=== PATIENT | female | born 1960 | race African-American/Black ===

== ENCOUNTER 2016-04-14 17:58 | Emergency (ER) | payer OTHER ==
[~2016-04-14] VITALS: Ht 162.6 cm; Wt 88.3 kg
[2016-04-14 18:09] VITALS: BP 136/86; PULSE 80; RESP 20; TEMP 98.9; O2SAT 98
[2016-04-14] MEDS ORDERED: MULT-120 PO (18:22)
[2016-04-14] MEDS ORDERED: FERR1TAB36 PO (18:22)
[2016-04-14] MEDS ORDERED: MAGN400T2 PO (18:22)
[2016-04-14] MEDS ORDERED: CALCCHW9 CHEW (18:22)
--- NOTE | 2016-04-14 18:23 | PD ---
HPI . Suture removal Chief Complaint: Skin Problem Time Seen by Provider: 18:15 Travel History International Travel<30 days: Yes Contact w/Intl Traveler<30days: Yes Name of Country Traveled to: [place] Traveled to known affect area: No History of Present Illness HPI Patient presents requesting suture removal. She had bariatric surgery done in [place] on March 26. She states that she had the surgery done in [place] for financial reasons. She is unable to have a follow-up appointment with her primary care provider 3 weeks. She states that the sutures are going crazy. She denies any other complaints. [facility] Past Medical History Hypertension: Yes Past Surgical History Other Surgery: Yes (BARIATRIC SURGERY, SPINAL STENOSIS) Social History Alcohol Use: No Tobacco Use: No Substance Use: No Allergies-Medications (Allergen,Severity, Reaction): Coded Allergies: Lisinopril (Verified Allergy, Unknown, N/V COUGHING, 04/14/16) Reported Meds & Prescriptions Reported Meds & Active Scripts Active Reported Calcium 1200 (Calcium Carbonate-Vitamin D W/Minerals) 1,200-1,000 Mg-Unit Chew Unknown Dose CHEW DAILY Multivitamin Women (Multiple Vitamins W/ Minerals) 1 Tab Tab 1 Tab PO DAILY Iron (Ferrous Sulfate) 325 Mg Tab 325 Mg PO DAILY Take Magnesium Oxide 400 Mg Tab 400 Mg PO DAILY Review of Systems Except as stated in HPI: all other systems reviewed are Neg General / Constitutional: Positive: Weight Loss (approximately 15 pounds so far ), No: Fever, Chills Skin: Positive Itching, Positive Other (she denies any drainage or redness) Physical Exam Narrative GENERAL: Healthy-appearing woman in no acute distress. SKIN: Warm and dry. She has several sutures laparoscopic wounds on her abdomen. The wounds are well-healed with no drainage and is red. HEAD: Atraumatic. Normocephalic. EYES: Pupils equal and round. ENT: No nasal bleeding or discharge. NECK: Trachea midline. CARDIOVASCULAR: Regular rate and rhythm. RESPIRATORY: No accessory muscle use. GASTROINTESTINAL: Abdomen soft, non-tender, nondistended. MUSCULOSKELETAL: No obvious deformities. No edema. She has spinal stenosis and walks with a cane. NEUROLOGICAL: Awake and alert. No obvious cranial nerve deficits. Motor grossly within normal limits. Normal speech. PSYCHIATRIC: Appropriate mood and affect; insight and judgment normal. Data Data Last Documented VS Vital Signs Date Time Temp Pulse Resp B/P Pulse Ox O2 Delivery O2 Flow Rate FiO2 04/14/16 18:09 98.9 80 20 136/86 98 MDM Medical Decision Making Medical Screen Exam Complete: Yes Emergency Medical Condition: Yes Differential Diagnosis Differential diagnosis includes wound infection, cellulitis, healed lacerations. Narrative Course Patient presented requesting suture removal. The sutures have been removed. One of the wounds opened up a little bit. It does not appear infected. There is no purulent drainage. Diagnosis Primary Impression: Visit for suture removal Disposition: 01 DISCHARGE HOME Condition: Stable Evette Martinez MD Apr 14, 2016 18:23
[2016-04-14] MEDS ORDERED: NEOMYCIN/POLYMYXIN/BACITRACIN OINT 15 GM TUBE TOPICAL ONE (18:30)
== END 2016-04-14 18:40 | disposition home or self-care (01) ==
LOC: PHEFT 17:58
DX: Z48.02 Encounter for removal of sutures (principal); Z98.84 Bariatric surgery status
CPT/HCPCS: 99282

== ENCOUNTER 2017-02-06 19:10 | Emergency (ER) | payer OTHER ==
[~2017-02-06] VITALS: Ht 162.6 cm; Wt 66.0 kg
[~2017-02-06 19:10] MED LIST: CALCCHW9 CHEW; FERR1TAB36 PO; MAGN400T2 PO; MULT-120 PO
[2017-02-06 19:13] VITALS: BP 131/61; PULSE 66; RESP 16; TEMP 98.6; O2SAT 100
--- NOTE | 2017-02-06 21:33 | PD ---
HPI Chief Complaint: Dizziness Time Seen by Provider: 21:27 Travel History International Travel<30 days: No Contact w/Intl Traveler<30days: No Traveled to known affect area: No History of Present Illness HPI patient over last 2-3 weeks has had lightheadedness, blurry vision, thirsty all the time, urinating all the time, and now recently developed some prickly sensation to her left foot/sole. patient denies [place]/cp/abdpain/n/v/d/. [place]:pcp pmhx:htn, ddd, spinal stenosis, bariatric surgery PFSH Past Medical History Cardiovascular Problems: Yes (HTN) Gastrointestinal Disorders: Yes (bladder incontinence ) Hypertension: Yes Neurologic: Yes (degenerative disc) Psychiatric: Yes (PTSD) Tetanus Vaccination: < 5 Years Influenza Vaccination: Yes Menopausal: Yes Past Surgical History Other Surgery: Yes (BARIATRIC SURGERY, SPINAL STENOSIS) Social History Alcohol Use: No Tobacco Use: No Substance Use: No Allergies-Medications (Allergen,Severity, Reaction): Coded Allergies: lisinopril (Unverified Allergy, Unknown, N/V COUGHING, 11/25/16) Reported Meds & Prescriptions Reported Meds & Active Scripts Active Reported Amlodipine (Amlodipine Besylate) 5 Mg Tab 5 Mg PO DAILY Zolpidem (Zolpidem Tartrate) 5 Mg Tab 5 Mg PO HS PRN Prazosin (Prazosin HCl) 1 Mg Cap 1 Mg PO HS Ditropan (Oxybutynin Chloride) 5 Mg Tab 5 Mg PO Q8HR Losartan (Losartan Potassium) 100 Mg Tab 100 Mg PO DAILY Hydrochlorothiazide 25 Mg Tab 25 Mg PO DAILY Gabapentin 600 Mg Tab 600 Mg PO TID Duloxetine DR (Duloxetine HCl) 30 Mg Capdr 30 Mg PO TID Flexeril (Cyclobenzaprine HCl) 10 Mg Tab 10 Mg PO TID Calcium 600 with Vitamin D (Calcium Carbonate-Cholecalciferol) 600-400 mg-Unit Tab 1 Tab PO BID Review of Systems Except as stated in HPI: all other systems reviewed are Neg General / Constitutional: No: Fever Eyes: Positive: Blurred Vision HENT: Positive: Lightheadedness Cardiovascular: No: Chest Pain or Discomfort Respiratory: No: Shortness of Breath Gastrointestinal: No: Abdominal Pain Genitourinary: Positive: Frequency Musculoskeletal: No: Pain Skin: No Rash Neurologic: No: Weakness Psychiatric: No: Depression Endocrine: Positive: Polyuria, Polydipsia Hematologic/Lymphatic: No: Easy Bruising Physical Exam Narrative GENERAL: SKIN: Warm and dry. HEAD: Atraumatic. Normocephalic. EYES: Pupils equal and round. No scleral icterus. No injection or drainage. ENT: No nasal bleeding or discharge. Mucous membranes pink and moist. NECK: Trachea midline. No JVD. CARDIOVASCULAR: Regular rate and rhythm. RESPIRATORY: No accessory muscle use. Clear to auscultation. Breath sounds equal bilaterally. GASTROINTESTINAL: Abdomen soft, non-tender, nondistended. MUSCULOSKELETAL: Extremities without clubbing, cyanosis, or edema. No obvious deformities. NEUROLOGICAL: Awake and alert. No obvious cranial nerve deficits. Motor grossly within normal limits. Five out of 5 muscle strength in the arms and legs. Normal speech. PSYCHIATRIC: Appropriate mood and affect; insight and judgment normal. Data Data Last Documented VS Vital Signs Date Time Temp Pulse Resp B/P (MAP) Pulse Ox O2 Delivery O2 Flow Rate FiO2 02/07/17 00:51 02/06/17 21:57 60 16 02/06/17 21:47 100 Room Air 02/06/17 19:13 98.6 Orders Orders Electrocardiogram (02/06/17 21:27) Complete Blood Count With Diff (02/06/17 21:27) Comprehensive Metabolic Panel (02/06/17 21:27) Troponin I (02/06/17 21:27) Prothrombin Time / Inr (Pt) (02/06/17 21:27) Act Partial Throm Time (Ptt) (02/06/17 21:27) Lipase (02/06/17 21:27) Thyroid Stimulating Hormone (02/06/17 21:27) Ct Brain W/O Iv Contrast(Rout) (02/06/17 21:27) Iv Access Insert/Monitor (02/06/17 21:27) Ecg Monitoring (02/06/17 21:27) Oximetry (02/06/17 21:27) Orthostatic Vital Signs (02/06/17 21:27) Blood Glucose (02/06/17 21:27) Hemoglobin (Hgb) A1c (02/06/17 21:29) Ed Discharge Order (02/07/17 00:27) Labs Laboratory Tests Test 02/06/17 22:00 White Blood Count 4.1 TH/MM3 Red Blood Count 4.49 MIL/MM3 Hemoglobin 13.2 GM/DL Hematocrit 40.4 % Mean Corpuscular Volume 89.9 FL Mean Corpuscular Hemoglobin 29.4 PG Mean Corpuscular Hemoglobin Concent 32.7 % Red Cell Distribution Width 14.0 % Platelet Count 321 TH/MM3 Mean Platelet Volume 7.9 FL Neutrophils (%) (Auto) 40.3 % Lymphocytes (%) (Auto) 45.0 % Monocytes (%) (Auto) 8.4 % Eosinophils (%) (Auto) 6.0 % Basophils (%) (Auto) 0.3 % Neutrophils # (Auto) 1.7 TH/MM3 Lymphocytes # (Auto) 1.9 TH/MM3 Monocytes # (Auto) 0.3 TH/MM3 Eosinophils # (Auto) 0.2 TH/MM3 Basophils # (Auto) 0.0 TH/MM3 CBC Comment DIFF FINAL Differential Comment Prothrombin Time 11.1 SEC Prothromb Time International Ratio 1.0 RATIO Activated Partial Thromboplast Time 28.7 SEC Blood Urea Nitrogen 21 MG/DL Creatinine 0.86 MG/DL Random Glucose 78 MG/DL Total Protein 7.9 GM/DL Albumin 3.9 GM/DL Calcium Level 9.6 MG/DL Alkaline Phosphatase 86 U/L Aspartate Amino Transf (AST/SGOT) 13 U/L Alanine Aminotransferase (ALT/SGPT) 17 U/L Total Bilirubin 0.3 MG/DL Sodium Level 137 MEQ/L Potassium Level 3.7 MEQ/L Chloride Level 97 MEQ/L Carbon Dioxide Level 30.0 MEQ/L Anion Gap 10 MEQ/L Estimat Glomerular Filtration Rate 82 ML/MIN Hemoglobin A1c 6.1 % Troponin I LESS THAN 0.02 NG/ML Lipase 195 U/L Thyroid Stimulating Hormone 3rd Gen 0.598 uIU/ML MDM Medical Decision Making Medical Screen Exam Complete: Yes Emergency Medical Condition: Yes Medical Record Reviewed: Yes Interpretation(s) SINUS JOSHUA, 54, NL INTERVALS, NO STEMI Differential Diagnosis ANEMIA V NEW ONSET DM V DEHYDRATION V STEMI Narrative Course on today's visit no e/o aanemia, dehydration, stemi were found. also normal liver, pancreas, kidney function as well. the hemoglobin a1c was borderline and thus patient is advised [facility] based on her symptoms. Diagnosis Primary Impression: Dizziness Additional Instructions: [facility] FOLLOW [facility] WITH [facility] FOR [facility]URTHER EVALUATION (NORMAL RANDOM BLOOD SUGAR, NORMAL THYROID HORMONE, NORMAL HEMOGLOBIN, NORMAL ELECTROLYTES, NORMAL LIVER ENZYMES, NORMAL PANCREAS FUNCTIONS. Disposition: 01 DISCHARGE HOME Condition: Stable Claudio Griffin MD Feb 06, 2017 21:33
[2017-02-06 21:47] VITALS: BP 158/61; PULSE 55; RESP 16; O2SAT 100
[2017-02-06 21:49] VITALS: BP 151/75; RESP 16
--- NOTE | 2017-02-06 21:51 | RADRPT ---
EXAM DATE/TIME: 02/06/2017 21:29 [place] COMPARISON: No previous studies available for comparison. INDICATIONS : Patient complains of dizziness and headaches. RADIATION DOSE: 56.35 CTDIvol (mGy) MEDICAL HISTORY : Cardiovascular disease. Hypertension. SURGICAL HISTORY : None. ENCOUNTER: Initial ACUITY: 1 day PAIN SCALE: 4/10 LOCATION: cranial TECHNIQUE: Multiple contiguous axial images were obtained of the head. Using automated exposure control and adj ustment of the mA and/or kV according to patient size, radiation dose was kept as low as reasonably a chievable to obtain optimal diagnostic quality images. DICOM format image data is available electro nically for review and comparison. FINDINGS: CEREBRUM: The ventricles are normal for age. No evidence of midline shift, mass lesion, hemorrhage or acute in farction. No extra-axial fluid collections are seen. POSTERIOR FOSSA: The cerebellum and brainstem are intact. The 4th ventricle is midline. The cerebellopontine angle i s unremarkable. EXTRACRANIAL: The visualized portion of the orbits is intact. SKULL: The calvaria is intact. No evidence of skull fracture. CONCLUSION: Normal examination. Clem Redding MD on February 06, 2017 at 21:48 Board Certified Radiologist. This report was verified electronically.
[2017-02-06 21:57] VITALS: BP 175/77; RESP 16
[2017-02-06 22:36] LABS: AUTOMATED NEUTROPHIL # 1.7 TH/MM3 (1.8-7.7); BASOPHIL % 0.3 % (0.0-2.0); EOSINOPHIL # 0.2 TH/MM3 (0-0.4); HEMATOCRIT 40.4 % (35.0-46.0); HEMOGLOBIN 13.2 GM/DL (11.6-15.3); LYMPHOCYTE # 1.9 TH/MM3 (1.0-4.8); MEAN CELL VOLUME 89.9 FL (80.0-100.0); MEAN CORPUSCULAR HEMOGLOBIN 29.4 PG (27.0-34.0); MEAN CORPUSCULAR HGB CONC 32.7 % (32.0-36.0); MEAN PLATELET VOLUME 7.9 FL (7.0-11.0); MONO % 8.4 % (0.0-8.0); MONOCYTE # 0.3 TH/MM3 (0-0.9); NEUT % 40.3 % (16.0-70.0); PLATELET COUNT 321 TH/MM3 (150-450); RED BLOOD COUNT 4.49 MIL/MM3 (4.00-5.30); WHITE BLOOD COUNT 4.1 TH/MM3 (4.0-11.0)
[2017-02-06 22:50] LABS: PROTHROMBIN TIME - PATIENT 11.1 SEC (9.8-11.6)
[2017-02-06 22:55] LABS: ALBUMIN 3.9 GM/DL (3.4-5.0); AST (GOT) 13 U/L (15-37); BLOOD UREA NITROGEN 21 MG/DL (7-18); CALCIUM 9.6 MG/DL (8.5-10.1); CHLORIDE 97 MEQ/L (98-107); CREATININE 0.86 MG/DL (0.50-1.00); GLOMERULAR FILTRATION RATE 82 ML/MIN (>89); GLUCOSE,RANDOM 78 MG/DL (74-106); LIPASE 195 U/L (73-393); SODIUM (NA) 137 MEQ/L (136-145)
[2017-02-06] MEDS ORDERED: CYCL10TA PO (22:55)
[2017-02-06] MEDS ORDERED: HYDR25TA5 PO (22:55)
[2017-02-06] MEDS ORDERED: PRAZ1CAP PO (22:55)
[2017-02-06] MEDS ORDERED: AMLO5TAB2 PO (22:55)
[2017-02-06] MEDS ORDERED: LOSA100T PO (22:55)
[2017-02-06] MEDS ORDERED: GABA600T PO (22:55)
[2017-02-06] MEDS ORDERED: ZOLP5TAB3 PO (22:55)
[2017-02-06] MEDS ORDERED: OXYB5TAB8 PO (22:55)
[2017-02-06] MEDS ORDERED: DULO1CAP2 PO (22:55)
[2017-02-06] MEDS ORDERED: CALC1TAB87 PO (22:55)
[2017-02-06 22:56] LABS: ALT (GPT) 17 U/L (10-53)
[2017-02-06 23:06] LABS: ALKALINE PHOSPHATASE 86 U/L (45-117); TOTAL BILIRUBIN ADULT 0.3 MG/DL (0.2-1.0); TOTAL PROTEIN 7.9 GM/DL (6.4-8.2); TROPONIN I LESS THAN 0.02 NG/ML (0.02-0.05)
[2017-02-08 09:34] LABS: HEMOGLOBIN A1C 6.1 % (4.3-6.0)
--- NOTE | 2017-02-08 21:05 | EKG ---
Date Performed: 02/06/2017 Time Performed: 21:45:56 PTAGE: 57 years EKG: SINUS BRADYCARDIA BORDERLINE ECG NO PREVIOUS TRACING DOCTOR: Angela Orourke Interpretating Date/Time 02/08/2017 20:56:06
--- NOTE | 2017-02-08 21:05 | EKG ---
Date Performed: 02/06/2017 Time Performed: 21:45:56 PTAGE: 57 years EKG: SINUS BRADYCARDIA BORDERLINE ECG NO PREVIOUS TRACING DOCTOR: Angela Orourke Interpretating Date/Time 02/08/2017 20:56:06
--- NOTE | 2017-02-08 21:05 | EKG ---
Date Performed: 02/06/2017 Time Performed: 21:45:56 PTAGE: 57 years EKG: SINUS BRADYCARDIA BORDERLINE ECG NO PREVIOUS TRACING DOCTOR: Angela Orourke Interpretating Date/Time 02/08/2017 20:56:06
== END 2017-02-07 01:05 | disposition home or self-care (01) ==
LOC: NEPD 19:10
DX: R42 Dizziness and giddiness (principal); R73.03 Prediabetes; I10 Essential (primary) hypertension; F43.10 Post-traumatic stress disorder, unspecified; Z98.84 Bariatric surgery status
CPT/HCPCS: 70450; 80053; 83036; 83690; 84443; 84484; 85025; 85610; 85730; 93005